=== PATIENT | male | born 1960 | race Caucasian/White ===

== ENCOUNTER → 2018-12-04 07:29 | Outpatient (CLI) | payer BC, SELFPAY ==
[2018-12-04 08:14] LABS: Add Manual Diff / Slide Review NO; Basophils Absolute Auto 0 /uL (0-100); Basophils Percent Auto 0.5 % (0-2); Eosinophils Absolute Auto 400 /uL (0-450); Eosinophils Percent Auto 5.5 % (2-4); Hematocrit 46.7 % (41-53); Hemoglobin 15.7 g/dL (13.5-17.5); Lymphocytes Absolute Auto 2600 /uL (1100-4500); Lymphocytes Percent Auto 33.1 % (25-40); Mean Corpuscular HGB Conc 33.5 % (30-36); Mean Corpuscular Hemoglobin 27.8 PG (26-34); Monocytes Absolute Auto 600 /uL (0-900); Monocytes Percent Auto 8.1 % (3-14); Neutrophils Absolute Auto 4100 /uL (1500-7000); Neutrophils Percent Auto 52.8 % (50-75); Platelet Count 203 X10^3/uL (150-400); Red Blood Cell Count 5.63 X10^6/uL (4.5-5.9); Red Cell Distribution Width 14.3 % (11.6-14.8); White Blood Cell Count 7.7 X10^3/uL (4.5-11.0)
[2018-12-04 08:40] LABS: Alanine Aminotransferase 36 IU/L (21-72); Albumin 4.2 g/dL (3.5-5.0); Albumin Globulin Ratio 1.5 (1.0-2.8); Alkaline Phosphatase 79 U/L (38-126); Aspartate Aminotransferase 29 IU/L (17-59); BUN Creatinine Ratio 17.7 (6-22); Bilirubin Total 0.7 mg/dL (0.2-1.3); Blood Urea Nitrogen 23 mg/dL (9-20); Calcium 9.3 mg/dL (8.4-10.2); Carbon Dioxide 24 mmol/L (22-32); Chloride 106 mmol/L (98-107); Cholesterol 189 mg/dL (140-199); Estimated Glomerular Filt Rate 56.7 mL/min (>60); Globulin 2.8 g/dL (1.7-4.1); Glucose 100 mg/dL (70-100); HDL Cholesterol 36 mg/dL (40-60); HEMOLYSIS 18 (0-50); LDL Cholesterol Calculated 128 mg/dL (<100); Potassium 4.5 mmol/L (3.4-5.1); Sodium 140 mmol/L (137-145); Triglycerides 126 mg/dL (35-150); Uric Acid 8.4 mg/dL (3.5-8.5)
[2018-12-04 09:03] LABS: Prostate Specific Antigen Scrn 0.541 ng/mL (0.1-4.0)
[2018-12-04 09:40] LABS: Hep C Virus Ab w/Reflex Quant NEGATIVE s/c (NEGATIVE)
== END ==
PROVIDERS: Visit Provider Internal Medicine
DX: E78.00 Pure hypercholesterolemia, unspecified (principal); M10.00 Idiopathic gout, unspecified site; M15.0 Primary generalized (osteo)arthritis
CPT/HCPCS: 36415; 80053; 80061; 84550; 85025; 86803; G0103

== ENCOUNTER → 2019-04-24 15:09 | Outpatient (CLI) | payer BC, SELFPAY ==
--- NOTE | 2019-04-24 | DI.MRI.S_ITS ---
PROCEDURE: MR CHEST WO CON INDICATIONS: Localized swelling, mass and lump, trunk TECHNIQUE: Axial 2-D FLASH in- and [id number], axial breath-hold T2 FSE, axial STIR FSE. Optional contrast may be given, followed by axial 2-D FLASH with fat saturation acquired over the lesion of concern. COMPARISON: None. FINDINGS: Image quality: Excellent. Region of interest: An MR surface marker was placed exactly over the area of current clinical concern, medial aspect of the lower left chest, superficial to the left epigastrium area, and there is no identified mass or distortion of the signal characteristics of this region of the chest wall and upper abdominal body wall structures. The viscera visualized appears normal. Bones: Nearby osseous structures demonstrate normal overall marrow signal. IMPRESSION: Normal examination, source of reported swelling and mass and clinical concern is not seen at the left lower chest/abdomen junction area in the left paramedian soft tissues or beneath. Dictated by: Eduardo Fregoso M.D. on 04/24/2019 at 17:20 Approved by: Eduardo Fregoso M.D. on 04/24/2019 at 17:22
== END ==
PROVIDERS: Family Provider Internal Medicine; PCP Internal Medicine; Visit Provider Internal Medicine
DX: R22.2 Localized swelling, mass and lump, trunk (principal)
CPT/HCPCS: 71550

== ENCOUNTER → 2019-06-02 15:09 | Outpatient (CLI) | payer BC, SELFPAY ==
[2019-06-02 15:52] LABS: BUN Creatinine Ratio 14.7 (6-22); Blood Urea Nitrogen 22 mg/dL (9-20); Calcium 9.3 mg/dL (8.4-10.2); Carbon Dioxide 30 mmol/L (22-32); Chloride 105 mmol/L (98-107); Estimated Glomerular Filt Rate 47.9 mL/min (>60); Glucose 110 mg/dL (70-100); HEMOLYSIS < 15 (0-50); Potassium 4.5 mmol/L (3.4-5.1); Sodium 142 mmol/L (137-145)
[2019-06-04 15:37] LABS: C-Reactive Protein Quant 1.8 mg/dL (<1.0); Uric Acid 9.8 mg/dL (3.5-8.5)
[2019-06-04 15:42] LABS: Rheumatoid Factor < 8.6 IU/mL (<12.0)
== END ==
PROVIDERS: PCP Internal Medicine; Visit Provider Internal Medicine
DX: E66.9 Obesity, unspecified (principal); N18.9 Chronic kidney disease, unspecified
CPT/HCPCS: 36415; 80048; 84550; 86140; 86430

== ENCOUNTER → 2019-06-30 09:08 | Outpatient (CLI) | payer BC, SELFPAY ==
--- NOTE | 2019-06-30 | DI.US.S_ITS ---
PROCEDURE: US RENAL COMPLETE INDICATIONS: CHRONIC KIDNEY DISEASE TECHNIQUE: Real-time scanning was performed of the kidneys and bladder, with image documentation. COMPARISON: None. FINDINGS: Kidneys: Kidneys are normal in size. Right kidney measures 10.5 cm long; left kidney measures 1.6 cm long. Right renal cortical thickness is 10.6 cm; left renal cortical thickness is 1.4 cm. Renal cortical echotexture is normal. No hydronephrosis or nephrolithiasis. No suspicious solid mass lesions. Bladder: Pre-void bladder volume is 53 mL. Post-void residual is 8 mL. Pre-void images demonstrate no intraluminal masses or stones. On pre-void images, neither ureteral jets are noted with color Doppler interrogation. (Of note, ureteral jets may not be detectable in up to 25% of cases due to insufficient differences in specific gravity between ureteral and bladder urine). Miscellaneous: No free pelvic fluid. IMPRESSION: 1. No evidence of hydronephrosis. Dictated by: Rupesh Simpson [facility] Interpreted: Altaf Abdul MD on 06/30/2019 at 10:11 Approved by: Altaf Abdul M.D. on 06/30/2019 at 16:36
== END ==
PROVIDERS: PCP Internal Medicine; Visit Provider Internal Medicine
DX: N18.9 Chronic kidney disease, unspecified (principal)
CPT/HCPCS: 76770

== ENCOUNTER → 2019-07-23 08:33 | Outpatient (CLI) | payer BC, SELFPAY ==
[2019-07-23 10:20] LABS: BUN Creatinine Ratio 17.5 (6-22); Blood Urea Nitrogen 21 mg/dL (9-20); Calcium 9.5 mg/dL (8.4-10.2); Carbon Dioxide 26 mmol/L (22-32); Chloride 104 mmol/L (98-107); Estimated Glomerular Filt Rate > 60.0 mL/min (>60); Glucose 88 mg/dL (70-100); HEMOLYSIS < 15 (0-50); Potassium 4.3 mmol/L (3.4-5.1); Sodium 140 mmol/L (137-145); Uric Acid 9.7 mg/dL (3.5-8.5)
== END ==
PROVIDERS: PCP Internal Medicine; Visit Provider Internal Medicine
DX: E78.00 Pure hypercholesterolemia, unspecified (principal); M10.00 Idiopathic gout, unspecified site; N18.9 Chronic kidney disease, unspecified
CPT/HCPCS: 36415; 80048; 84550

== ENCOUNTER → 2020-01-22 08:57 | Outpatient (CLI) | payer BC, SELFPAY ==
[2020-01-22 10:30] LABS: BUN Creatinine Ratio 16.5 (6-22); Blood Urea Nitrogen 20 mg/dL (9-20); Calcium 9.9 mg/dL (8.4-10.2); Carbon Dioxide 24 mmol/L (22-32); Chloride 106 mmol/L (98-107); Cholesterol 169 mg/dL (140-199); Estimated Glomerular Filt Rate > 60.0 mL/min (>60); Glucose 100 mg/dL (80-110); HDL Cholesterol 36 mg/dL (40-60); HEMOLYSIS < 15 (0-50); LDL Cholesterol Calculated 108 mg/dL (<100); Potassium 4.7 mmol/L (3.4-5.1); Sodium 138 mmol/L (137-145); Triglycerides 123 mg/dL (35-150); Uric Acid 9.3 mg/dL (3.5-8.5)
== END ==
PROVIDERS: PCP Internal Medicine; Referring Provider Internal Medicine; Visit Provider Internal Medicine
DX: N18.9 Chronic kidney disease, unspecified (principal); M10.00 Idiopathic gout, unspecified site; E78.00 Pure hypercholesterolemia, unspecified
CPT/HCPCS: 36415; 80048; 80061; 84550

== ENCOUNTER → 2020-03-19 11:49 | Outpatient (CLI) | payer BC, SELFPAY ==
[2020-03-21 13:43] LABS: COVID19 Sendout Not Detected (Not Detect)
== END ==
PROVIDERS: PCP Internal Medicine; Visit Provider Physician Assistant
DX: Z11.59 Encounter for screening for other viral diseases (principal)
CPT/HCPCS: 87635

== ENCOUNTER 2020-03-22 08:33 | Day surgery (SDC) | payer BC, SELFPAY ==
[2020-03-22] VITALS (7 sets, daily range): BP systolic 115–136; BP diastolic 79–92; PULSE 83–100; RESP 10–16; TEMP 36.3–37.2; O2SAT 93–96; BMI 30.5
--- NOTE | 2020-03-22 09:22 | P.HP_ITS ---
History of Present Illness History of Present Illness Date Patient Seen: 03/22/20 Time Patient Seen: 09:22 Chief complaint: SCREENING COLONOSCOPY Narrative: The patient is a gentleman who last had a colonoscopy in the [facility] area about 3 years ago. He was told he should have a repeat exam in 3 years. He apparently had a large polyp removed. He is uncertain if the tattoo was applied. Patient History Medical History (Updated 03/22/20 @ 09:23 by Reynaldo Jeter MD) Hypercholesterolemia (Inactive) Surgical History (Updated 03/22/20 @ 09:24 by Reynaldo Jeter MD) Status post appendectomy (Acute) Family & Social History Social History: household members spouse Tobacco & Substance use: Smoking Status Never smoker alcohol intake frequency a few times a month Substance Use Type does not use Meds Home Medications and Allergies Home Medications Medication Instructions Recorded Confirmed Type atorvastatin 40 mg PO DAILY 03/22/20 03/22/20 History Review of Systems Review of Systems ROS: Yes All systems reviewed with the patient and are negative except as otherwise documented Exam Vital Signs (past 8 hours): - 03/22/20 08:51 Temperature 97.3 F L Pulse Rate 87 Respiratory Rate 16 Blood Pressure 136/92 H Pulse Oximetry 96 Oxygen Delivery Method Room Air Narrative Exam Narrative: Pleasant cooperative patient no apparent distress. Lungs are clear to auscultation. No rales or rhonchi. Heart regular rate and rhythm no murmur gallop. Abdomen is soft nontender without mass. No obvious hernias. Patient is alert and oriented x3. Assessment & Plan Assessment & Plan narrative: The patient for a screening colonoscopy. I have discussed the procedure with them. Risks of bleeding, perforation which would necessitate major operation, failure to find remove all lesions, the potential tattoo were all discussed. All questions were answered. They wished to proceed.
--- NOTE | 2020-03-22 09:24 | PM.PREOP ---
Pre-operative Note COVID-19 COVID-19 status: Negative Result date/Date tested (Pos, Neg/Pending): 03/19/20 Interval Note History & Physical reviewed/Exam performed by Physician: Yes Changes to H&P: No ASA Class (for procedural sedation): I
[2020-03-22] MEDS: LACTATED RINGERS 1,000 ML 200 ML IV (09:25)
[2020-03-22] MEDS: MIDAZOLAM 5 MG/5 ML VIAL IV (09:40)
[2020-03-22] MEDS: fentaNYL 250 MCG/5 ML INJ IV (09:40)
--- NOTE | 2020-03-22 09:56 | PM.OP.ENDO ---
Operative Date/Time/Diagnoses Date of procedure: 03/22/20 Time of procedure: 09:57 Pre-op diagnosis: Screening exam. Last colonoscopy 3 years ago. Patient advised at that time to have an exam in 3 years. Post-op diagnosis: same (Diverticulosis of the sigmoid and transverse colon.) Procedure & Clinicians Study performed: Colonoscopy Same procedure as scheduled: Yes Indications: Screening Surgeon: Reynaldo Jeter Procedure Notes SCOAP/Timeout: Form Procedure in detail: The patient was placed in the left lateral decubitus position and underwent IV sedation directed by the surgeon consisting of fentanyl and Versed. Digital exam was remarkable for a mildly enlarged prostate without dominant mass. The patient was also noted to have a posterior skin tag from old hemorrhoidal disease and a thrombosed external hemorrhoid. The hemorrhoid thrombosis was not ulcerated.. The scope was inserted and advanced through the rectum into the sigmoid, descending, transverse, and ascending colon. Patient was noted to have diverticuli in the sigmoid and transverse colon.. The cecum was reached identified by the ileocecal valve and the appendiceal opening. The patient had some venous varicosities in the cecum. These were scattered and small. There was no ulceration in the area. The scope was gradually brought out. No Polyps were found. The scope ultimately was retroflexed in the rectum. The appearance was remarkable for internal hemorrhoids. The scope was removed and the patient tolerated the procedure well. Prep was very good. Scope withdrawal time: 9-1/2 minutes Sedation minutes: 19 Findings: diverticulosis Post-procedure Recommendations: Colonscopy in 5 years and High fiber diet Follow up: as needed Disposition: PACU
== END 2020-03-22 10:43 | disposition home or self-care (01) ==
PROVIDERS: PCP Internal Medicine; Referring Provider Specialist; Visit Provider Specialist
PROC: 0DJD8ZZ Inspection of Lower Intestinal Tract, Via Natural or Artificial Opening Endoscopic (ICD-10-PCS; CPT 45378; principal; 2020-03-22 09:45)
DX: Z12.11 Encounter for screening for malignant neoplasm of colon (principal); Z86.010 Personal history of colon polyps; K57.30 Diverticulosis of large intestine without perforation or abscess without bleeding
CPT/HCPCS: 45378; 99152; J2250; J3010

== ENCOUNTER → 2020-09-30 11:03 | Outpatient (CLI) | payer BC, SELFPAY ==
[2020-09-30] MEDS: COVID-19 VACC #1, MRNA(MOD) 100 MCG/0.5 ML VIAL IM (11:07)
== END ==
PROVIDERS: PCP Internal Medicine; Visit Provider Internal Medicine
DX: Z23 Encounter for immunization (principal)
CPT/HCPCS: 0011A; 91301

== ENCOUNTER → 2020-10-28 10:55 | Outpatient (CLI) | payer BC, SELFPAY ==
[2020-10-28] MEDS: COVID-19 VACC #2, MRNA(MOD) 100 MCG/0.5 ML VIAL IM (11:03)
== END ==
PROVIDERS: PCP Internal Medicine; Visit Provider Internal Medicine
DX: Z23 Encounter for immunization (principal)
CPT/HCPCS: 0012A; 91301

== ENCOUNTER → 2020-12-13 07:15 | Outpatient (CLI) | payer BC, SELFPAY ==
[2020-12-13 08:26] LABS: Add Manual Diff / Slide Review NO; Basophils Absolute Auto 0 /uL (0-100); Basophils Percent Auto 0.2 % (0-2); Eosinophils Absolute Auto 300 /uL (0-450); Eosinophils Percent Auto 3.7 % (2-4); Hematocrit 46.8 % (41-53); Hemoglobin 15.3 g/dL (13.5-17.5); Lymphocytes Absolute Auto 2600 /uL (1100-4500); Lymphocytes Percent Auto 32.9 % (25-40); Mean Corpuscular HGB Conc 32.7 % (30-36); Mean Corpuscular Volume 82.6 fL (80-100); Monocytes Absolute Auto 600 /uL (0-900); Monocytes Percent Auto 7.9 % (3-14); Neutrophils Absolute Auto 4300 /uL (1500-7000); Neutrophils Percent Auto 55.3 % (50-75); Platelet Count 216 X10^3/uL (150-400); Red Blood Cell Count 5.66 X10^6/uL (4.5-5.9); Red Cell Distribution Width 14.1 % (11.6-14.8); White Blood Cell Count 7.8 X10^3/uL (4.5-11.0)
[2020-12-13 08:50] LABS: BUN Creatinine Ratio 20.7 (6-22); Blood Urea Nitrogen 25 mg/dL (9-20); Calcium 9.8 mg/dL (8.4-10.2); Carbon Dioxide 29 mmol/L (22-32); Chloride 105 mmol/L (98-107); Estimated Glomerular Filt Rate > 60.0 mL/min (>60); Glucose 91 mg/dL (80-110); HEMOLYSIS < 15 (0-50); Potassium 4.6 mmol/L (3.4-5.1); Sodium 139 mmol/L (137-145); Uric Acid 9.3 mg/dL (3.5-8.5)
[2020-12-13 09:22] LABS: Prostate Specific Antigen 0.723 ng/mL (0.10-4.00)
== END ==
PROVIDERS: PCP Internal Medicine; Referring Provider Internal Medicine; Visit Provider Internal Medicine
DX: Z00.01 Encounter for general adult medical examination with abnormal findings (principal); M10.00 Idiopathic gout, unspecified site; M15.0 Primary generalized (osteo)arthritis
CPT/HCPCS: 36415; 80048; 84153; 84550; 85025

== ENCOUNTER 2023-06-07 14:22 | Emergency (ER) | payer BC, SELFPAY ==
[2023-06-07] VITALS (22 sets, daily range): BP systolic 115–147; BP diastolic 70–97; PULSE 80–110; RESP 17–30; TEMP 36.6; O2SAT 92–98; BMI 33.4
--- NOTE | 2023-06-07 14:33 | DI.RAD.S_ITS ---
PROCEDURE: XR CHEST 1V INDICATIONS: chest pain TECHNIQUE: One view of the chest was acquired. COMPARISON: None. FINDINGS: Surgical changes and devices: None. Lungs and pleura: Lungs are clear. No pleural effusions or pneumothorax. Mediastinum: Mediastinal contours appear normal. Heart size is normal. Bones and chest wall: No suspicious bony lesions. Overlying soft tissues appear unremarkable. IMPRESSION: No evidence acute pulmonary process. Dictated by: Jorge L Jacobs M.D. on 06/07/2023 at 15:11 Approved by: Jorge L Jacobs M.D. on 06/07/2023 at 15:12
[2023-06-07 14:54] LABS: Add Manual Diff / Slide Review NO; Basophils Absolute Auto 200 /uL (0-100); Basophils Percent Auto 1.3 % (0-2); Eosinophils Absolute Auto 100 /uL (0-450); Eosinophils Percent Auto 1.2 % (2-4); Hematocrit 46.1 % (41-53); Hemoglobin 15.3 g/dL (13.5-17.5); Lymphocytes Absolute Auto 3400 /uL (1100-4500); Lymphocytes Percent Auto 26.9 % (25-40); Mean Corpuscular HGB Conc 33.2 % (30-36); Mean Corpuscular Hemoglobin 27.6 PG (26-34); Mean Corpuscular Volume 83.1 fL (80-100); Monocytes Absolute Auto 1200 /uL (0-900); Monocytes Percent Auto 9.3 % (3-14); Neutrophils Absolute Auto 7700 /uL (1500-7000); Neutrophils Percent Auto 61.3 % (50-75); Platelet Count 165 X10^3/uL (150-400); Red Blood Cell Count 5.55 X10^6/uL (4.5-5.9); Red Cell Distribution Width 14.6 % (11.6-14.8); White Blood Cell Count 12.5 X10^3/uL (4.5-11.0)
--- NOTE | 2023-06-07 14:57 | PC.NURSE ---
Yesterday patient was 10 minutes into his home workout on a treadmill when he became SOB, could feel his heart beating fast and hard, and felt unwell. He had to stop his workout and made it up the stairs to rest. Pt has noticed worsening SOB with small activities such as walking out to his car and moving around. Pt denies chest pain and doesnt feel SOB while laying in bed. He has never had this feeling before. Denies cardiac or pulmonary disease/conditions.
[2023-06-07 14:59] LABS: INR 1.2 (0.9-1.3); Prothrombin Time 13.8 SECONDS (9.4-12.5)
[2023-06-07 15:01] LABS: Alanine Aminotransferase 44 IU/L (<50); Albumin 4.1 g/dL (3.5-5.0); Albumin Globulin Ratio 1.4 (1.0-2.8); Alkaline Phosphatase 111 U/L (38-126); Aspartate Aminotransferase 30 IU/L (17-59); BUN Creatinine Ratio 13.1 (6-22); Bilirubin Total 1.2 mg/dL (0.2-1.3); Blood Urea Nitrogen 18 mg/dL (9-20); Calcium 9.5 mg/dL (8.4-10.2); Carbon Dioxide 24 mmol/L (22-32); Chloride 105 mmol/L (98-107); Creatine Kinase 91 U/L (55-170); Estimated Glomerular Filt Rate 58 mL/min (>60); Glucose 108 mg/dL (80-110); HEMOLYSIS < 15 (0-50); Lipase 232 U/L (23-300); Magnesium 1.8 mg/dL (1.6-2.3); PTT Partial Thromboplastin Tim 29 SECONDS (25.1-36.5); Potassium 3.7 mmol/L (3.4-5.1); Sodium 137 mmol/L (137-145); Total Protein 7.1 g/dL (6.3-8.2)
[2023-06-07 15:16] LABS: Troponin I 0.282 ng/mL (0.01-0.034)
[2023-06-07] MEDS: ASPIRIN 81 MG CHEW TAB 324 MG PO (15:21)
--- NOTE | 2023-06-07 15:36 | ED.ARRPALP ---
HPI - Arrhythmia/Palpitations <Angel Huitron MD - Last Filed: 06/07/23 18:37> General Chief Complaint: Arrhythmia/Palpitations Stated Complaint: heart issues SVT Time Seen by Provider: 06/07/23 15:18 Source: patient Mode of arrival: Ambulatory History of Present Illness HPI narrative: 59-year-old man with a history of elevated cholesterol presenting with dyspnea and near-syncope and rapid heart rate when she noticed yesterday in the afternoon. He says that he was working out on his treadmill was about 10 minutes into it and he had the onset of a very rapid heart rate and feeling very faint and short of breath. At 1 point from his Apple watch his heart rate was greater than 165 and that was after his heart rate had begun to slow down. Since then he is felt tachycardia consistently he felt faint and short of breath with any exertion. He is not had any calf swelling did not really have any chest pain during this. He has no known history of coronary disease no history of hypertension no history of diabetes no family history nonsmoker. There has been no calf swelling. He is not been ill recently. He does take atorvastatin for elevated cholesterol. No history of intracranial hemorrhage or GI bleeding Related Data Home Medications Medication Instructions Recorded Confirmed atorvastatin 40 mg PO DAILY 03/22/20 03/22/20 Allergies Allergy/AdvReac Type Severity Reaction Status Date / Time No Known Drug Allergies Allergy Verified 03/22/20 10:00 Review of Systems <Davey Garrison DO - Last Filed: 06/08/23 00:45> Cardiovascular Cardiovascular: Reports system reviewed and no additional complaints, except as documented Respiratory Respiratory: Reports system reviewed and no additional complaints, except as documented Patient History <Angel Huitron MD - Last Filed: 06/07/23 18:37> Medical History (Updated 06/07/23 @ 20:23 by Davey Garrison DO) Hypercholesterolemia Surgical History (Updated 03/22/20 @ 09:24 by Reynaldo Jeter MD) Status post appendectomy Social History household members: spouse Smoking Status: Never smoker Smoking Status: Never smoker alcohol intake frequency: holidays/special occasions only Substance Use Type: does not use Exam <Angel Huitron MD - Last Filed: 06/07/23 18:37> Initial Vital Signs Initial Vital Signs: Vital Signs Temperature 97.8 F 06/07/23 14:27 Pulse Rate 110 H 11/24/23 14:27 Respiratory Rate 22 06/07/23 14:27 Blood Pressure 125/80 06/07/23 14:27 Pulse Oximetry 95 06/07/23 14:27 Oxygen Delivery Method Room Air 06/07/23 14:27 Const General: cooperative and well developed [facility] Head: normal to inspection Neck Neck: supple Chest Chest: normal inspection of the chest Resp Effort & Inspection: normal respiratory effort, able to speak in complete sentences and no respiratory distress Auscultation: clear to auscultation bilaterally Cardio Rate: regular rate Rhythm: regular rhythm Heart Sounds: no gallops and no murmurs GI Inspection: non-distended Palpation: soft and No tender Auscultation: normal bowel sounds Skin General: no rashes or lesions noted Neuro General: patient alert and patient oriented x3 Extrem General: full ROM, no pedal edema and no calf tenderness Psych Mental Status: mental status grossly normal <Davey Garrison DO - Last Filed: 06/08/23 00:45> Initial Vital Signs Initial Vital Signs: Vital Signs Temperature 97.8 F 06/07/23 14:27 Pulse Rate 110 H 06/07/23 14:27 Respiratory Rate 22 06/07/23 14:27 Blood Pressure 125/80 06/07/23 14:27 Pulse Oximetry 95 06/07/23 14:27 Oxygen Delivery Method Room Air 06/07/23 14:27 Course <Angel Huitron MD - Last Filed: 06/07/23 18:37> Orders Ordered: ED Orders 06/07/23 16:21 EKG-12 Lead Stat 06/07/23 17:58 CT angio chest PE protocol Stat 06/07/23 22:00 BNP [NT-proBNP (BNP-Adult 18+)] Stat Troponin & CK Cardiac Panel Stat 06/07/23 22:35 PTT Partial Thromboplastin Neel Stat Heparin Sodium/Dextrose (Heparin Drip) 25,000 unit in 500 mls @ 35.924 mls/hr IV CONT BREANA; Protocol Last Titration: 06/07/23 23:00 Dose: 16.99 units/kg/hr, 33.9 mls/hr Documented By: ABDIRAHMAN Co-signed By: DANNI Admin: 06/07/23 18:56 Dose: 18 units/kg/hr, 35.924 mls/hr Documented By: SANIA Co-signed By: RAMON Discontinued Medications Aspirin (Aspirin 81 Mg Chew Tab) 324 mg PO NOW ONE Stop: 06/07/23 14:34 Last Admin: 06/07/23 15:21 Dose: 324 mg Documented By: SANIA Heparin Sodium (Porcine) (Heparin 5,000 Unit/Ml Vial) 5,000 unit IV NOW ONE Stop: 06/07/23 15:38 Last Admin: 06/07/23 15:53 Dose: 5,000 unit Documented By: BLANCHE Heparin Sodium/Dextrose (Heparin Drip) 25,000 unit in 500 mls @ 23.95 mls/hr IV CONT BREANA; Protocol Last Titration: 06/07/23 18:54 Dose: Infused Documented By: SANIA Co-signed By: RAMON Admin: 06/07/23 15:54 Dose: 12 units/kg/hr, 23.95 mls/hr Documented By: BLANCHE Co-signed By: SANIA Metoprolol Tartrate (Metoprolol Ir 25 Mg Tablet) 25 mg PO NOW ONE Stop: 06/07/23 15:40 Last Admin: 06/07/23 15:53 Dose: 25 mg Documented By: BLANCHE Reevaluation(s) Reevaluation #1: EKG is repeated, shows sinus rhythm at 97 there is poor R-wave progression, anterior T-wave inversions no acute ST elevation. Patient is advised to transfer to a facility with cardiology available Consultations Consultation #1: D/W Dr Delgado, cardiology at [facility]- advises we should transfer for cardiology Consultation #2: D/W Dr Dsouza IR at [facility], if pt can be transferred he can have thorombectomy tomorrow Time: 18:36 Vital Signs Vital signs: Vital Signs - 8 hr 06/07/23 17:00 06/07/23 17:00 06/07/23 17:32 Pulse Rate 84 80 Respiratory Rate 19 21 Blood Pressure 118/86 Pulse Oximetry 95 Oxygen Delivery Method Room Air 06/07/23 18:00 06/07/23 18:30 06/07/23 18:50 Pulse Rate 82 83 83 Respiratory Rate 21 30 H 25 H Blood Pressure Pulse Oximetry 95 95 96 Oxygen Delivery Method Room Air Room Air 06/07/23 18:50 06/07/23 19:00 06/07/23 19:00 Pulse Rate 84 Respiratory Rate 23 Blood Pressure 118/83 118/83 Pulse Oximetry 95 Oxygen Delivery Method 06/07/23 19:30 06/07/23 19:30 06/07/23 20:00 Pulse Rate 85 84 Respiratory Rate 21 20 Blood Pressure 130/70 Pulse Oximetry 96 94 Oxygen Delivery Method 06/07/23 20:00 06/07/23 20:30 06/07/23 20:30 Pulse Rate 84 Respiratory Rate 25 H Blood Pressure 132/76 137/89 Pulse Oximetry 95 Oxygen Delivery Method 06/07/23 21:00 06/07/23 21:00 06/07/23 21:30 Pulse Rate 82 82 Respiratory Rate 22 24 Blood Pressure 139/77 Pulse Oximetry 96 95 Oxygen Delivery Method 06/07/23 21:30 06/07/23 22:00 06/07/23 22:00 Pulse Rate 83 Respiratory Rate 20 Blood Pressure 132/79 135/97 H Pulse Oximetry 98 Oxygen Delivery Method 06/07/23 22:30 06/07/23 22:30 06/07/23 23:00 Pulse Rate 82 84 Respiratory Rate 19 24 Blood Pressure 115/73 Pulse Oximetry 96 96 Oxygen Delivery Method 06/07/23 23:00 06/07/23 23:30 06/07/23 23:30 Pulse Rate 90 Respiratory Rate 17 Blood Pressure 126/74 119/71 Pulse Oximetry 95 Oxygen Delivery Method 06/08/23 00:00 06/08/23 00:00 06/08/23 00:30 Pulse Rate 84 84 Respiratory Rate 25 H 18 Blood Pressure 106/66 Pulse Oximetry 96 96 Oxygen Delivery Method 06/08/23 00:30 Pulse Rate Respiratory Rate Blood Pressure 99/69 Pulse Oximetry Oxygen Delivery Method <Davey Garrison DO - Last Filed: 06/08/23 00:45> Orders Ordered: ED Orders 06/07/23 16:21 EKG-12 Lead Stat 06/07/23 17:58 CT angio chest PE protocol Stat 06/07/23 22:00 BNP [NT-proBNP (BNP-Adult 18+)] Stat Troponin & CK Cardiac Panel Stat 06/07/23 22:35 PTT Partial Thromboplastin Neel Stat Heparin Sodium/Dextrose (Heparin Drip) 25,000 unit in 500 mls @ 35.924 mls/hr IV CONT BREANA; Protocol Last Titration: 06/07/23 23:00 Dose: 16.99 units/kg/hr, 33.9 mls/hr Documented By: ABDIRAHMAN Co-signed By: DANNI Admin: 06/07/23 18:56 Dose: 18 units/kg/hr, 35.924 mls/hr Documented By: SANIA Co-signed By: RAMON Discontinued Medications Aspirin (Aspirin 81 Mg Chew Tab) 324 mg PO NOW ONE Stop: 06/07/23 14:34 Last Admin: 06/07/23 15:21 Dose: 324 mg Documented By: SANIA Heparin Sodium (Porcine) (Heparin 5,000 Unit/Ml Vial) 5,000 unit IV NOW ONE Stop: 06/07/23 15:38 Last Admin: 06/07/23 15:53 Dose: 5,000 unit Documented By: BLANCHE Heparin Sodium/Dextrose (Heparin Drip) 25,000 unit in 500 mls @ 23.95 mls/hr IV CONT BREANA; Protocol Last Titration: 06/07/23 18:54 Dose: Infused Documented By: SANIA Co-signed By: RAMON Admin: 06/07/23 15:54 Dose: 12 units/kg/hr, 23.95 mls/hr Documented By: BLANCHE Co-signed By: SANIA Metoprolol Tartrate (Metoprolol Ir 25 Mg Tablet) 25 mg PO NOW ONE Stop: 06/07/23 15:40 Last Admin: 06/07/23 15:53 Dose: 25 mg Documented By: BLANCHE Vital Signs Vital signs: Vital Signs - 8 hr 06/07/23 17:00 06/07/23 17:00 06/07/23 17:32 Pulse Rate 84 80 Respiratory Rate 19 21 Blood Pressure 118/86 Pulse Oximetry 95 Oxygen Delivery Method Room Air 06/07/23 18:00 06/07/23 18:30 06/07/23 18:50 Pulse Rate 82 83 83 Respiratory Rate 21 30 H 25 H Blood Pressure Pulse Oximetry 95 95 96 Oxygen Delivery Method Room Air Room Air 06/07/23 18:50 06/07/23 19:00 06/07/23 19:00 Pulse Rate 84 Respiratory Rate 23 Blood Pressure 118/83 118/83 Pulse Oximetry 95 Oxygen Delivery Method 06/07/23 19:30 06/07/23 19:30 06/07/23 20:00 Pulse Rate 85 84 Respiratory Rate 21 20 Blood Pressure 130/70 Pulse Oximetry 96 94 Oxygen Delivery Method 06/07/23 20:00 06/07/23 20:30 06/07/23 20:30 Pulse Rate 84 Respiratory Rate 25 H Blood Pressure 132/76 137/89 Pulse Oximetry 95 Oxygen Delivery Method 06/07/23 21:00 06/07/23 21:00 06/07/23 21:30 Pulse Rate 82 82 Respiratory Rate 22 24 Blood Pressure 139/77 Pulse Oximetry 96 95 Oxygen Delivery Method 06/07/23 21:30 06/07/23 22:00 06/07/23 22:00 Pulse Rate 83 Respiratory Rate 20 Blood Pressure 132/79 135/97 H Pulse Oximetry 98 Oxygen Delivery Method 06/07/23 22:30 06/07/23 22:30 06/07/23 23:00 Pulse Rate 82 84 Respiratory Rate 19 24 Blood Pressure 115/73 Pulse Oximetry 96 96 Oxygen Delivery Method 06/07/23 23:00 06/07/23 23:30 06/07/23 23:30 Pulse Rate 90 Respiratory Rate 17 Blood Pressure 126/74 119/71 Pulse Oximetry 95 Oxygen Delivery Method 06/08/23 00:00 06/08/23 00:00 06/08/23 00:30 Pulse Rate 84 84 Respiratory Rate 25 H 18 Blood Pressure 106/66 Pulse Oximetry 96 96 Oxygen Delivery Method 06/08/23 00:30 Pulse Rate Respiratory Rate Blood Pressure 99/69 Pulse Oximetry Oxygen Delivery Method MDM - Arrhythmia/Palpitations <Angel Huitron MD - Last Filed: 06/07/23 18:37> Lab Data Lab results narrative: CBC is notable for leukocytosis, CMP is unremarkable, troponin is elevated 06/07/23 14:42 06/07/23 14:42 Labs: Lab Results 06/07/23 06/07/23 06/07/23 Range/Units 14:33 14:42 22:00 WBC 12.5 H (4.5-11.0) X10^3/uL RBC 5.55 (4.5-5.9) X10^6/uL Hgb 15.3 (13.5-17.5) g/dL Hct 46.1 (41-53) % MCV 83.1 (80-100) fL MCH 27.6 (26-34) PG MCHC 33.2 (30-36) % RDW 14.6 (11.6-14.8) % Plt Count 165 (150-400) X10^3/uL Neut % (Auto) 61.3 (50-75) % Lymph % (Auto) 26.9 (25-40) % [place] % (Auto) 9.3 (3-14) % Eos % (Auto) 1.2 L (2-4) % Baso % (Auto) 1.3 (0-2) % Neut # (Auto) 7700 H (5380-4912) /uL Lymph # (Auto) 3400 (0019-1860) /uL [place] # (Auto) 1200 H (0-900) /uL Eos # (Auto) 100 (0-450) /uL Baso # (Auto) 200 H (0-100) /uL PT 13.8 H (9.4-12.5) SECONDS INR 1.2 (0.9-1.3) APTT 29 (25.1-36.5) SECONDS D-Dimer 96195 H (<500) ng/ml Sodium 137 (137-145) mmol/L Potassium 3.7 (3.4-5.1) mmol/L Chloride 105 (98-107) mmol/L Carbon Dioxide 24 (22-32) mmol/L BUN 18 (9-20) mg/dL Creatinine 1.37 H (0.66-1.25) mg/dL Estimated GFR 58 L (>60) mL/min BUN/Creatinine Ratio 13.1 (6-22) Glucose 108 (80-110) mg/dL Calcium 9.5 (8.4-10.2) mg/dL Magnesium 1.8 (1.6-2.3) mg/dL Total Bilirubin 1.2 (0.2-1.3) mg/dL AST 30 (17-59) IU/L ALT 44 (<50) IU/L Alkaline Phosphatase 111 (38-126) U/L Total Creatine Kinase 91 74 (55-170) U/L Troponin I 0.282 H* 0.163 H* (0.01-0.034) ng/mL NT-Pro-B Natriuret Pep 3320 H 2090 H (<125) pg/mL Total Protein 7.1 (6.3-8.2) g/dL Albumin 4.1 (3.5-5.0) g/dL Globulin 3.0 (1.7-4.1) g/dL Albumin/Globulin Ratio 1.4 (1.0-2.8) Lipase 232 (23-300) U/L 06/07/23 Range/Units 22:35 WBC (4.5-11.0) X10^3/uL RBC (4.5-5.9) X10^6/uL Hgb (13.5-17.5) g/dL Hct (41-53) % MCV (80-100) fL MCH (26-34) PG MCHC (30-36) % RDW (11.6-14.8) % Plt Count (150-400) X10^3/uL Neut % (Auto) (50-75) % Lymph % (Auto) (25-40) % [place] % (Auto) (3-14) % Eos % (Auto) (2-4) % Baso % (Auto) (0-2) % Neut # (Auto) (7059-8016) /uL Lymph # (Auto) (7508-3882) /uL [place] # (Auto) (0-900) /uL Eos # (Auto) (0-450) /uL Baso # (Auto) (0-100) /uL PT (9.4-12.5) SECONDS INR (0.9-1.3) APTT 107 H* D (25.1-36.5) SECONDS D-Dimer (<500) ng/ml Sodium (137-145) mmol/L Potassium (3.4-5.1) mmol/L Chloride (98-107) mmol/L Carbon Dioxide (22-32) mmol/L BUN (9-20) mg/dL Creatinine (0.66-1.25) mg/dL Estimated GFR (>60) mL/min BUN/Creatinine Ratio (6-22) Glucose (80-110) mg/dL Calcium (8.4-10.2) mg/dL Magnesium (1.6-2.3) mg/dL Total Bilirubin (0.2-1.3) mg/dL AST (17-59) IU/L ALT (<50) IU/L Alkaline Phosphatase (38-126) U/L Total Creatine Kinase (55-170) U/L Troponin I (0.01-0.034) ng/mL NT-Pro-B Natriuret Pep (<125) pg/mL Total Protein (6.3-8.2) g/dL Albumin (3.5-5.0) g/dL Globulin (1.7-4.1) g/dL Albumin/Globulin Ratio (1.0-2.8) Lipase (23-300) U/L Imaging Data Chest x-ray: My Impression: Independent review, no acute disease seen ECG Data Interpretation: EKG shows sinus tachycardia at 100 QTC is prolonged at 5:05 a.m. milliseconds no diagnostic ST elevation nonspecific ST segment changes diffusely there are Q-waves limited in lead 3 <Davey Garrison, DO - Last Filed: 06/08/23 00:45> Lab Data Labs: Lab Results 06/07/23 06/07/23 06/07/23 Range/Units 14:33 14:42 22:00 WBC 12.5 H (4.5-11.0) X10^3/uL RBC 5.55 (4.5-5.9) X10^6/uL Hgb 15.3 (13.5-17.5) g/dL Hct 46.1 (41-53) % MCV 83.1 (80-100) fL MCH 27.6 (26-34) PG MCHC 33.2 (30-36) % RDW 14.6 (11.6-14.8) % Plt Count 165 (150-400) X10^3/uL Neut % (Auto) 61.3 (50-75) % Lymph % (Auto) 26.9 (25-40) % [place] % (Auto) 9.3 (3-14) % Eos % (Auto) 1.2 L (2-4) % Baso % (Auto) 1.3 (0-2) % Neut # (Auto) 7700 H (9959-0468) /uL Lymph # (Auto) 3400 (3490-2227) /uL [place] # (Auto) 1200 H (0-900) /uL Eos # (Auto) 100 (0-450) /uL Baso # (Auto) 200 H (0-100) /uL PT 13.8 H (9.4-12.5) SECONDS INR 1.2 (0.9-1.3) APTT 29 (25.1-36.5) SECONDS D-Dimer 16916 H (<500) ng/ml Sodium 137 (137-145) mmol/L Potassium 3.7 (3.4-5.1) mmol/L Chloride 105 (98-107) mmol/L Carbon Dioxide 24 (22-32) mmol/L BUN 18 (9-20) mg/dL Creatinine 1.37 H (0.66-1.25) mg/dL Estimated GFR 58 L (>60) mL/min BUN/Creatinine Ratio 13.1 (6-22) Glucose 108 (80-110) mg/dL Calcium 9.5 (8.4-10.2) mg/dL Magnesium 1.8 (1.6-2.3) mg/dL Total Bilirubin 1.2 (0.2-1.3) mg/dL AST 30 (17-59) IU/L ALT 44 (<50) IU/L Alkaline Phosphatase 111 (38-126) U/L Total Creatine Kinase 91 74 (55-170) U/L Troponin I 0.282 H* 0.163 H* (0.01-0.034) ng/mL NT-Pro-B Natriuret Pep 3320 H 2090 H (<125) pg/mL Total Protein 7.1 (6.3-8.2) g/dL Albumin 4.1 (3.5-5.0) g/dL Globulin 3.0 (1.7-4.1) g/dL Albumin/Globulin Ratio 1.4 (1.0-2.8) Lipase 232 (23-300) U/L 06/07/23 Range/Units 22:35 WBC (4.5-11.0) X10^3/uL RBC (4.5-5.9) X10^6/uL Hgb (13.5-17.5) g/dL Hct (41-53) % MCV (80-100) fL MCH (26-34) PG MCHC (30-36) % RDW (11.6-14.8) % Plt Count (150-400) X10^3/uL Neut % (Auto) (50-75) % Lymph % (Auto) (25-40) % [place] % (Auto) (3-14) % Eos % (Auto) (2-4) % Baso % (Auto) (0-2) % Neut # (Auto) (3164-9955) /uL Lymph # (Auto) (2754-8263) /uL [place] # (Auto) (0-900) /uL Eos # (Auto) (0-450) /uL Baso # (Auto) (0-100) /uL PT (9.4-12.5) SECONDS INR (0.9-1.3) APTT 107 H* D (25.1-36.5) SECONDS D-Dimer (<500) ng/ml Sodium (137-145) mmol/L Potassium (3.4-5.1) mmol/L Chloride (98-107) mmol/L Carbon Dioxide (22-32) mmol/L BUN (9-20) mg/dL Creatinine (0.66-1.25) mg/dL Estimated GFR (>60) mL/min BUN/Creatinine Ratio (6-22) Glucose (80-110) mg/dL Calcium (8.4-10.2) mg/dL Magnesium (1.6-2.3) mg/dL Total Bilirubin (0.2-1.3) mg/dL AST (17-59) IU/L ALT (<50) IU/L Alkaline Phosphatase (38-126) U/L Total Creatine Kinase (55-170) U/L Troponin I (0.01-0.034) ng/mL NT-Pro-B Natriuret Pep (<125) pg/mL Total Protein (6.3-8.2) g/dL Albumin (3.5-5.0) g/dL Globulin (1.7-4.1) g/dL Albumin/Globulin Ratio (1.0-2.8) Lipase (23-300) U/L MDM Narrative Medical decision making narrative: Dr garrison: Received turned over. Review patient's history and physical. Performed my own independent focused exam. Patient has known saddle PE. He is on heparin. Is not hypoxic. Not tachycardic. Not hypotensive. Is somewhat tachypneic. No chest pain. Discussed the case with hospitalist at [facility]. They do not have capability of performing thrombectomy. I then discussed the case with hospitalist and manager pacu at [facility]. They also agree that the patient would be a candidate for consideration of thrombectomy. I also discussed the case with hospitalist and manager pacu that [facility]. They accept the patient in transfer. Patient is stable for transport. Dr Garcia accepting Critical Care Time <Davey Garrison, DO - Last Filed: 06/08/23 00:45> Critical Care Time Critical Care Time: Yes Total Critical Care Time: 40 Attestation: The high probability of a clinically significant, sudden or life threatening deterioration of the [cardiovascular, respiratory] system(s) required my full and direct attention, intervention and personal management. The aggregate critical care time was [40] minutes. This time is in addition to time spent performing reported procedures but includes the following: [x] Data Review and interpretation [x] Patient assessment and monitoring of vital signs [x] Documentation [x] Medication orders and management Discharge Plan Departure Patient Disposition: [facility] Clinical Impression: Pulmonary embolism, Dyspnea on exertion Prescriptions: No Action atorvastatin 40 mg PO DAILY Referrals: Miscellaneous,Doctor, MD [Primary Care Provider] -
[2023-06-07] MEDS: HEPARIN 5,000 UNIT/ML VIAL 5000 UNIT IV (15:53)
[2023-06-07] MEDS: METOPROLOL IR 25 MG TABLET PO (15:53)
[2023-06-07] MEDS: HEPARIN DRIP 25,000 UNIT/500 ML IV.SOLN 23.95 UNIT IV (15:54)
[2023-06-07 16:25] LABS: D Dimer 16127 ng/ml (<500)
--- NOTE | 2023-06-07 17:58 | DI.CT.S_ITS ---
PROCEDURE: CT ANGIO CHEST PE PROTOCOL INDICATIONS: PE suspected, positive dimer sob TECHNIQUE: After the administration of intravenous contrast, 2 mm thick sections acquired from the pulmonary apices to the posterior costophrenic angles. 3-dimensional maximum intensity projection (MIP) coronal and sagittal reformats were then acquired through the thorax. For radiation dose reduction, the following was used: automated exposure control, adjustment of mA and/or kV according to patient size. COMPARISON: [facility], CR, XR CHEST 1V, 06/07/2023, 14:55. FINDINGS: Image quality: Good Lungs and pleura: [id number] areas of suspected air trapping, indicating small airways disease. In the right middle lobe, there is a pulmonary nodule measuring up to 8 mm. No dense airspace disease. Suspected basal atelectasis/scarring. No drainable pleural effusions. Mild bronchial wall thickening diffusely. Numerous other smaller pulmonary nodules are also seen. Mediastinum, heart, and esophagus: Saddle pulmonary embolism. No pathologic lymph nodes. There is CT evidence of right heart strain. Chest wall and thyroid: No actionable thyroid nodule identified. Chest wall is unremarkable. Upper abdomen: Cholelithiasis. No gross abnormality on these arterial phase images. Bones: No acute or suspicious osseous finding. IMPRESSION: Saddle pulmonary embolism with CT signs of right heart strain. Multiple pulmonary nodules, the largest measuring up to 8 mm in the right middle lobe (5/130). Consider follow-up in at most 6 months, or sooner if there is concern for underlying malignancy. Other findings as above. Discussed with ED at time this report was signed. Dictated by: Flako Vital M.D. on 06/07/2023 at 18:02 Approved by: Flaok Vital M.D. on 06/07/2023 at 18:08
[2023-06-07] MEDS: HEPARIN DRIP 25,000 UNIT/500 ML IV.SOLN 35.924 UNIT IV (18:56)
--- NOTE | 2023-06-07 18:56 | PC.NURSE ---
Making calls for patient transfer for pulmonary embolisim, needing interventional radiologist 1619- [facility], spoke to Tesha on waitlist [phone] , spoke to Laura on waitlist [phone]- [facility]/Prov- told to call back
--- NOTE | 2023-06-07 18:59 | PC.NURSE ---
Pt's heparin order changed from cardiac to non-cardiac. His heparin order was increased based on CTA findings of saddle pulmonary embolism, see MAR.
[2023-06-07 20:08] LABS: NT-proBNP (BNP-Adult 18+) 3320 pg/mL (<125)
--- NOTE | 2023-06-07 20:21 | PC.NURSE ---
GRAVITY METER OBSERVER NOTE: Got report from GRAVITY METER OBSERVER Radha Received call from [facility] and they are unable to take pt at this time [facility] currently waitlisted there
--- NOTE | 2023-06-07 22:00 | PC.NURSE ---
Patient provided with turkey sandwich, crackers and water as per request, ok per Dr. Garrison. Patient denies SOB or chest pain at this time. Patient awaiting acceptance to transfer to another hospital.
[2023-06-07 22:17] LABS: Creatine Kinase 74 U/L (55-170)
[2023-06-07 22:29] LABS: NT-proBNP (BNP-Adult 18+) 2090 pg/mL (<125)
[2023-06-07 22:32] LABS: Troponin I 0.163 ng/mL (0.01-0.034)
[2023-06-07 22:55] LABS: PTT Partial Thromboplastin Tim 107 SECONDS (25.1-36.5)
[2023-06-08] VITALS: BP 106/66; PULSE 84; RESP 25; O2SAT 96
[2023-06-08 00:30] VITALS: BP 99/69; PULSE 84; RESP 18; O2SAT 96
--- NOTE | 2023-06-08 00:49 | PC.NURSE ---
stain sprayer note: pt accepted at [facility]
--- NOTE | 2023-06-08 00:50 | PC.NURSE ---
Transport team given report and patient's chart. Patient awake and alert, updated on transfer to [facility]. Patient denies SOB/CP/dizziness at this time.
== END 2023-06-08 01:00 | disposition short-term general hospital (02) ==
PROVIDERS: Emergency Medicine; Emergency Provider Emergency Medicine
DX: I26.99 Other pulmonary embolism without acute cor pulmonale (principal); R06.09 Other forms of dyspnea; E78.00 Pure hypercholesterolemia, unspecified
CPT/HCPCS: 36415; 71045; 71275; 80053; 82550; 83690; 83735; 83880; 84484; 85025; 85379; 85610; 85730; 93005; 93010; 99285; J1644